=== PATIENT | female | born 1980 | race Hispanic/Latino ===

== ENCOUNTER 2016-11-19 23:55 | Inpatient (IN) ==
[2016-11-20] MEDS ORDERED: PEPCID IV PRN (00:30)
[2016-11-20] MEDS ORDERED: PEPCID PO PRN (00:30)
[2016-11-20] MEDS ORDERED: SODIUM CHLORIDE 0.9% INJ SCH (00:30)
[2016-11-20] MEDS ORDERED: PITOCIN 30 UNITS/LR 30 UNITS/500 ML IV.SOLN IV SCH (00:30)
[2016-11-20] MEDS ORDERED: STADOL IV PRN (00:30)
[2016-11-20] MEDS ORDERED: TYLENOL PO PRN (00:30)
[2016-11-20] MEDS ORDERED: KEFZOL 1 GM/D5W 1 GM/50 ML IVPB IV PRN (00:30)
[2016-11-20] MEDS ORDERED: ZOFRAN IV PRN (00:30)
[2016-11-20] MEDS: LR 1,000 ML IV SCH ×2 (01:05→05:06)
[2016-11-20 02:13] LABS: MANUAL DIFF NEEDED? NO; URINE SOURCE VOIDED
[2016-11-20 02:15] LABS: BASO% 0.2 % (0.0-0.8); EOS# 0.11 X1000 (0.0-0.7); EOS% 1.3 % (0.0-10.0); HEMATOCRIT 35.2 % (37.0-47.0); HEMOGLOBIN 12.5 g/dL (12.0-16.0); IMM GRAN# 0.07 X1000 (0.0-0.04); IMM GRAN% 0.8 % (0.0-0.5); LYMPH# 2.43 X1000 (1.2-3.4); LYMPH% 28.5 % (20.5-51.1); MCH 32.8 PG (27-31); MCHC 35.5 g/dL (33-37); MCV 92.4 FL (81-99); MONO# 0.53 X1000 (0.11-0.59); MONO% 6.2 % (1.7-9.3); PLT 150 X1000 (130-400); RBC 3.81 XMIL (4.2-5.4)
[2016-11-20 02:17] LABS: BILIRUBIN URINE NEGATIVE (NEGATIVE); BLOOD URINE 4+ (NEGATIVE); CLARITY SL. CLOUDY (CLEAR); COLOR YELLOW; GLUCOSE URINE NEGATIVE (NEGATIVE); LEUKOCYTES URINE TRACE (NEGATIVE); NITRITE URINE NEGATIVE (NEGATIVE); PROTEIN URINE NEGATIVE (NEGATIVE); SP GRAVITY URINE 1.005; UROBILINOGEN URINE NORMAL
[2016-11-20] MEDS ORDERED: XYLOCAINE-MPF 1% INJ PRN ×2 (04:19→09:32)
[2016-11-20] MEDS ORDERED: MINERAL OIL TOP PRN ×2 (04:19→09:32)
[2016-11-20] MEDS ORDERED: MARCAINE 0.5% PF INJ ONE (04:50)
[2016-11-20] MEDS ORDERED: FENTANYL-BUPIV-NS 2 MCG-0.1% 200 ML EPIDURAL PRN (04:58)
[2016-11-20 05:12] LABS: UR AMPHETAMINES QUAL NONE DETECTED (NONE DETECT); UR BARBITUATES QUAL NONE DETECTED (NONE DETECT); UR BENZODIAZEPIN QUAL NONE DETECTED (NONE DETECT); UR CANNABINOIDS QUAL NONE DETECTED (NONE DETECT); UR COCAINE QUAL NONE DETECTED (NONE DETECT); UR MDMA QUAL NONE DETECTED (NONE DETECT); UR METHADONE QUAL NONE DETECTED (NONE DETECT); UR METHAMPHETAMINE QUAL NONE DETECTED (NONE DETECT); UR OPIATES QUAL NONE DETECTED (NONE DETECT); UR OXYCODONE QUAL NONE DETECTED (NONE DETECT); UR PCP QUAL NONE DETECTED (NONE DETECT); UR TCA QUAL NONE DETECTED (NONE DETECT)
[2016-11-20] MEDS ORDERED: PITOCIN 30 UNITS/LR 30 UNITS/500 ML IV.SOLN IV ONE (09:32)
[2016-11-20] MEDS ORDERED: PERI MEDS (DERMOPLAST/NUPERCAINAL/TUCKS) MISC PRN (09:32)
[2016-11-20] MEDS ORDERED: BENADRYL PO PRN (09:32)
[2016-11-20] MEDS ORDERED: PITOCIN 20 UNITS/LR 20 UNITS/1,000 ML IV.SOLN IV SCH (09:32)
[2016-11-20] MEDS ORDERED: NORCO-5 PO PRN (09:32)
[2016-11-20] MEDS ORDERED: NORCO-10 PO PRN (09:32)
[2016-11-20] MEDS ORDERED: M-M-R II VACCINE SUBQ ONE (09:32)
[2016-11-20] MEDS ORDERED: BOOSTRIX VACCINE IM ONE (09:32)
[2016-11-20] MEDS ORDERED: HYDROXYZINE IM PRN (09:32)
[2016-11-20] MEDS ORDERED: AMBIEN PO PRN (09:32)
[2016-11-20] MEDS ORDERED: MINERAL OIL PO PRN (09:32)
[2016-11-20] MEDS ORDERED: CYTOTEC PO PRN (09:32)
[2016-11-20] MEDS ORDERED: MOTRIN PO PRN (09:32)
[2016-11-20] MEDS ORDERED: HYDROXYZINE PO PRN (09:32)
[2016-11-20] MEDS ORDERED: PITOCIN IM PRN (09:32)
[2016-11-20] MEDS ORDERED: BENADRYL IV PRN (09:32)
--- NOTE | 2016-11-20 10:58 | OPERATIVE NOTE ---
PROCEDURE DATE: 11/20/2000 DELIVERY NOTE: The patient underwent sterile controlled spontaneous vaginal delivery of a viable female , weighing 7 pounds 4 ounces with Apgars of 8 and 9. No nuchal, no dystocia. Cord doubly clamped and cut. handed off to waiting pediatric staff. Placenta delivered spontaneously and intact. Uterus, cervix and vagina explored and no lacerations noted. Uterus firm with Pitocin and massage. cc: MD Mario Wong MD MTDD
[2016-11-20] MEDS: PERICOLACE PO SCH (20:25)
[2016-11-21 06:20] LABS: HEMATOCRIT 34.2 % (37.0-47.0); HEMOGLOBIN 11.4 g/dL (12.0-16.0); MCH 31.6 PG (27-31); MCHC 33.3 g/dL (33-37); MCV 94.7 FL (81-99); MPV 12.1 FL (7.4-10.4); RBC 3.61 XMIL (4.2-5.4)
[2016-11-21] MEDS: PERICOLACE PO SCH (21:17)
[2016-11-22 12:18] VITALS: BP 107/81
== END 2016-11-22 13:30 | disposition home or self-care (01) ==
LOC: P.LD 23:55 → P.WC 11-20 12:49
PROVIDERS: ADMIT Obstetrics & Gynecology; ATTEND Obstetrics & Gynecology